=== PATIENT | male | born 1980 | race Caucasian/White ===

== ENCOUNTER 2021-05-06 17:38 | Emergency (ER) | payer BC, SELFPAY ==
[2021-05-06] VITALS (10 sets, daily range): BP systolic 116–160; BP diastolic 74–86; PULSE 74–83; RESP 16–21; TEMP 36.3; O2SAT 94–98
--- NOTE | ~2021-05-06 | XR_ITS ---
XR chest 2V DATE: 05/06/2021 17:54 INDICATION: Left chest pain, worsening shortness of breath TECHNIQUE: PA and lateral views COMPARISON: 09/18/2010 2 view chest FINDINGS: Normal heart size. No hilar or mediastinal enlargement. No pulmonary infiltrate or consolid ation, pleural effusion or pulmonary vascular congestion or pneumothorax. IMPRESSION: Negative Reviewed, dictated and finalized at location A. IMPRESSION: Negative
--- NOTE | 2021-05-06 17:39 | ECG_ITS ---
Measurements Intervals [place] Rate: 82 P: 59 [place]: 190 QRS: 14 QRSD: 85 T: 48 QT: 329 QTc: 385 Interpretive Statements SINUS RHYTHM POSSIBLE LEFT ATRIAL ENLARGEMENT [-0.1mV P WAVE IN V1/V2] NONSPECIFIC T-WAVE ABNORMALITY ABNORMAL ECG NO PREVIOUS ECG AVAILABLE FOR COMPARISON Electronically Signed On 05-07-2021 12:31:10 CDT by Willie Adkins M.D.
[2021-05-06] MEDS: ASPIRIN 81 MG CHEWABLE TABLET 324 MG PO (18:31)
[2021-05-06] MEDS: KETOROLAC 30 MG/ML VIAL (*BKC) IV PUSH (18:32)
[2021-05-06 18:42] LABS: Basophils Percent Auto 0.4 % (0.2-1.2); Eosinophils Absolute Auto 0.2 K/mm3 (0-0.3); Eosinophils Percent Auto 1.9 % (0-4.4); Hematocrit 43.8 % (42.0-52.0); Hemoglobin 15.4 g/dL (14.0-18.0); Immature Granulocyte Absolute 0.07 K/mm3 (0.00-0.031); Immature Granulocyte Percent A 0.6 % (0-0.5); Lymphocytes Absolute Auto 4.35 K/mm3 (0.9-3.2); Lymphocytes Percent Auto 38.8 % (18.3-44.2); Mean Corpuscular HGB Conc 35.2 g/dl (32-36); Mean Corpuscular Volume 85.4 fl (80-100); Mean Platelet Volume 10.2 fl (7.4-10.4); Monocytes Absolute Auto 0.9 K/mm3 (0.1-0.6); Monocytes Percent Auto 7.6 % (2.6-8.5); Neutrophils Absolute Auto 5.7 K/mm3 (1.3-6.7); Neutrophils Percent Auto 50.7 % (45.5-73.1); Platelet Count Result 227 k/mm3 (150-375); Red Blood Count 5.13 M/mm3 (4.6-6.20); Red Cell Distribution Width 12.5 % (11.5-14.5); White Blood Count 11.2 K/mm3 (4.5-10.0)
[2021-05-06 18:52] LABS: Partial Thromboplastin Time 25.7 SECONDS (22.3-36.8)
[2021-05-06 18:57] LABS: Alanine Aminotransferase 52 U/L (4-50); Albumin Level 4.8 g/dL (3.5-5.1); Alkaline Phosphatase 57 U/L (38-126); Anion Gap 9 mmol/L (8-16); Aspartate Amino Transferase 48 U/L (17-59); Bilirubin,Total 0.6 mg/dL (0.2-1.3); Blood Urea Nitrogen 19 mg/dL (9-20); Calcium 9.5 mg/dL (8.4-10.2); Carbon Dioxide 25 mmol/L (22-30); Chloride 106 mmol/L (98-107); Estimated CRCL calculation 133 ml/min; Estimated Glomerular Filt Rate > 60; Glucose 125 mg/dL (65-110); Lipase 61 U/L (23-300); Potassium 4.1 mmol/L (3.4-5.0); Sodium 140 mmol/L (137-145)
[2021-05-06 19:04] LABS: Troponin I < 0.012 ng/mL (0.000-0.034)
--- NOTE | 2021-05-06 20:05 | ED.CHESTPAIN ---
HPI - Chest Pain General Chief Complaint: Chest Pain Stated Complaint: CHEST PAIN Time Seen by Provider: 05/06/21 17:52 History of Present Illness HPI narrative: Patient is a 40-year-old male who presents ER with left-sided chest pain. Inferior to the pectoralis. No radiation. Steadily growing intensity throughout the day. Patient took a baby aspirin but had no relief. Symptoms are worse with twisting and moving his arm. Occasionally worse with deep breath. PERC score 0. No family history of heart disease. No exertional component. Pain does improve if he rubs on his chest. Related Data Allergies Allergy/AdvReac Type Severity Reaction Status Date / Time No Known Allergies Allergy Verified 05/06/21 18:53 Review of Systems Review of Systems: All systems reviewed & are unremarkable except as noted in HPI and below Constitutional: Constitutional: Denies chills, Denies fever(s) and Denies weakness ENT: Denies nasal congestion and Denies sore throat Cardiovascular: Cardiovascular: Reports chest pain, Denies rapid heart rate and Denies radiating jaw, neck or arm pain Respiratory: Respiratory: Denies cough, Denies dyspnea and Denies wheezing Gastrointestinal: Gastrointestinal: Denies abdominal pain, Denies diarrhea, Denies nausea and Denies vomiting Musculoskeletal: Musculoskeletal: Denies arthralgias and Denies joint swelling PMF Past Medical History Medical History (Updated 05/06/21 @ 20:11 by Mervin Wright MD) Healthy adult male Surgical History Surgical History (Updated 05/06/21 @ 20:11 by Mervin Wright MD) No history of previous surgery Family History Family History (Updated 10/02/17 @ 10:26 by DOCTOR UNKNOWN) Mother Depression Carcinoma of colon, Onset Age: 40 Other Family history of malignant neoplasm Social History Social History Smoking status: Former smoker Smoking end date: 02/18/13 Alcohol intake: current Exam Narrative: GENERAL: Well-appearing, well-nourished, and in no acute distress. HEAD: Normocephalic, atraumatic. ENT: TMs normal bilaterally. Ear canals free of cerumen. NECK: Supple. CHEST: Clear to auscultation. No respiratory distress. HEART: Regular rate and rhythm. Normal peripheral pulses. EXTREMITIES: Normal range of motion. No edema. SKIN: Warm, dry, no rash. NEURO: Alert and oriented x3. PSYCH: Normal mood and affect. Course Course Emergency Course: Pain improved with Toradol. Informed of results. Discharge home. Recommend scheduled anti-inflammatories. Vital Signs Vital signs: Vital Signs Temperature 97.4 F L 05/06/21 17:43 Pulse Rate 83 05/06/21 17:43 Respiratory Rate 18 05/06/21 17:43 Blood Pressure 133/78 05/06/21 17:43 Pulse Oximetry 98 05/06/21 17:43 Temperature 97.4 F L 05/06/21 17:43 Pulse Rate 75 05/06/21 19:32 Respiratory Rate 20 05/06/21 19:17 Blood Pressure 128/80 05/06/21 19:17 Pulse Oximetry 94 05/06/21 19:17 MDM - Chest Pain Lab Data Result diagrams: 05/06/21 18:30 05/06/21 18:30 Labs: Lab Results 05/06/21 05/06/21 05/06/21 Range/Units 18:30 18:30 18:30 WBC 11.2 H (4.5-10.0) K/mm3 RBC 5.13 (4.6-6.20) M/mm3 Hgb 15.4 (14.0-18.0) g/dL Hct 43.8 (42.0-52.0) % MCV 85.4 (80-100) fl MCH 30.0 (26-34) pg MCHC 35.2 (32-36) g/dl RDW 12.5 (11.5-14.5) % Plt Count 227 (150-375) k/mm3 MPV 10.2 (7.4-10.4) fl Immature Gran % (Auto) 0.6 H (0-0.5) % Neut % (Auto) 50.7 (45.5-73.1) % Lymph % (Auto) 38.8 (18.3-44.2) % [place] % (Auto) 7.6 (2.6-8.5) % Eos % (Auto) 1.9 (0-4.4) % Baso % (Auto) 0.4 (0.2-1.2) % Lymph # (Auto) 4.35 H (0.9-3.2) K/mm3 [place] # (Auto) 0.9 H (0.1-0.6) K/mm3 Eos # (Auto) 0.2 (0-0.3) K/mm3 Baso # (Auto) 0.0 (0.0-0.1) K/mm3 Abs Immat Gran (auto) 0.07 H (0.00-0.031) K/mm3 Absolute Neuts (auto) 5.7 (1.3-6.7) K/mm3 Absolute Nucl
== END 2021-05-06 19:55 | disposition home or self-care (01) ==
PROVIDERS: Emergency Provider Emergency Medicine; PCP Physician Assistant
DX: R07.89 Other chest pain (principal); Z87.891 Personal history of nicotine dependence; R94.31 Abnormal electrocardiogram [ECG] [EKG]
CPT/HCPCS: 36415; 71046; 80053; 83690; 84484; 85025; 85610; 85730; 93005; 96374; 99284; A9270; J1885

== ENCOUNTER 2022-04-26 15:32 | Outpatient (CLI) | payer BC, SELFPAY ==
[2022-04-26 20:23] LABS: Alanine Aminotransferase 45 U/L (6-50); Albumin Level 4.9 g/dL (3.5-5.1); Alkaline Phosphatase 74 U/L (38-126); Anion Gap 7 mmol/L (8-16); Aspartate Amino Transferase 50 U/L (17-59); Blood Urea Nitrogen 16 mg/dL (9-20); Calcium 9.9 mg/dL (8.4-10.2); Carbon Dioxide 31 mmol/L (22-30); Chloride 100 mmol/L (98-107); Cholesterol 240 mg/dL (0-200); Estimated Glomerular Filt Rate > 60; Glucose 86 mg/dL (65-110); HDL Direct 32 mg/dL; Potassium 4.5 mmol/L (3.4-5.0); Sodium 138 mmol/L (137-145); Triglycerides 274 mg/dL (<150)
[2022-04-26 20:36] LABS: LDL Cholesterol Direct 140 mg/dL
[2022-04-26 20:54] LABS: Prostate Specific Antigen 0.3 ng/mL (< OR = 4.0)
== END 2022-04-26 15:33 | disposition home or self-care (01) ==
LOC: ANHGOSHLAB 15:33
PROVIDERS: PCP Family Medicine; Visit Provider Family Medicine
DX: Z13.228 Encounter for screening for other metabolic disorders (principal); Z13.220 Encounter for screening for lipoid disorders; N13.8 Other obstructive and reflux uropathy; N40.0 Benign prostatic hyperplasia without lower urinary tract symptoms
CPT/HCPCS: 36415; 80053; 80061; 84153

== ENCOUNTER 2023-05-17 08:30 | Outpatient (CLI) | payer BC, SELFPAY ==
[2023-05-17 13:51] LABS: Alanine Aminotransferase 47 U/L (6-50); Albumin Level 4.6 g/dL (3.5-5.1); Alkaline Phosphatase 76 U/L (38-126); Anion Gap 9 mmol/L (4-12); Aspartate Amino Transferase 72 U/L (17-59); Bilirubin,Total 0.7 mg/dL (0.2-1.3); Blood Urea Nitrogen 12 mg/dL (9-20); Calcium 10.4 mg/dL (8.4-10.2); Carbon Dioxide 27 mmol/L (22-30); Chloride 103 mmol/L (98-107); Cholesterol 179 mg/dL (0-200); Estimated Glomerular Filt Rate > 60; Glucose 88 mg/dL (65-110); HDL Direct 32 mg/dL; Potassium 4.2 mmol/L (3.4-5.0); Sodium 139 mmol/L (137-145); Triglycerides 301 mg/dL (<150)
[2023-05-17 14:02] LABS: LDL Cholesterol Direct 104 mg/dL
== END 2023-05-17 08:31 | disposition home or self-care (01) ==
LOC: ANHGOSHLAB 08:31
PROVIDERS: PCP Family Medicine; Visit Provider Family Medicine
DX: Z13.220 Encounter for screening for lipoid disorders (principal); Z13.228 Encounter for screening for other metabolic disorders
CPT/HCPCS: 36415; 80053; 80061